=== PATIENT | male | born 1970 | race Caucasian/White ===

== ENCOUNTER 2019-06-08 11:11 | Emergency (ER) | payer BC ==
[2019-06-08] MEDS ORDERED: BABY ASPIRIN 81 MG CHEW PO ONE (11:32)
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
[2019-06-08] MEDS ORDERED: BABY ASPIRIN 81 MG CHEW ONE (11:47)
[2019-06-08 11:52] LABS: Absolute Neutrophil Ct (ANC) 4.74 (1.4-6.9); BASOPHIL % 0.6 % (0.0-0.4); Basophil (Absolute #) 0.05 (0-0.4); Eosinophil % 3.6 % (0.00-5.0); Eosinophil (Absolute #) 0.29 (0-0.5); Hematocrit 47.3 % (42-50); Hemoglobin 16.2 gm/dl (12.5-18.0); Lymphocyte (Absolute #) 2.17 (1.0-4.6); Lymphocytes % 27.2 % (24.0-44.0); Mean Cell Volume 86.6 fl (78-100); Mean Corpuscular Hemoglobin 29.7 pg (26-32); Mean Corpuscular Hgb Concent. 34.2 g/dl (32-36); Mean Platelet Volume 10.2 fl (6-9.5); Monocyte (Absolute #) 0.74 (0.0-1.3); Monocytes % 9.3 % (0.0-12.0); Neutrophil % 59.3 % (36.0-66.0); Platelet Count 237 K/mm3 (150-450); Red Blood Count 5.46 M/mm3 (4.1-5.6); Red Cell Distribution Width 12.7 % (11.5-14.0)
[2019-06-08 12:11] LABS: ALBUMIN 4.5 g/dL (3.5-5.0); ALKALINE PHOSPHATASE 102 U/L (38-126); ANION GAP 13.6 MEQ/L (5-15); BLOOD UREA NITROGEN 16 mg/dL (9-20); CHLORIDE 104 mmol/L (98-107); Calcium 9.5 mg/dL (8.4-10.2); Carbon Dioxide 28 mmol/L (22-30); Creatinine 1 0.84 mg/dL (0.66-1.25); Glucose 100 mg/dL (74-106); NT PRO BNP 22.8 pg/mL (0-450); SGOT/AST 37 U/L (17-59); SGPT/ALT 40 U/L (0-50); SODIUM 142 mmol/L (137-145); Total Protein 8.8 g/dL (6.3-8.2)
--- NOTE | 2019-06-08 12:23 | XRAY ---
Indication: Left arm pain. Comparison: None PA/lateral chest demonstrates normal heart and lungs. Bony thorax intact.
[2019-06-08 14:03] VITALS: BP 128/86; PULSE 74; O2SAT 99
== END 2019-06-08 14:04 | disposition short-term general hospital (02) ==
LOC: ED 11:11
DX: R07.2 Precordial pain (principal); I10 Essential (primary) hypertension; Z79.899 Other long term (current) drug therapy
CPT/HCPCS: 36000; 36415; 71046; 80053; 83880; 84484; 85025; 93005; 93041; 99285; A9270-GY

== ENCOUNTER 2020-10-24 20:20 | Emergency (ER) | payer BC ==
[2020-10-24] MEDS ORDERED: TORAdol 30 mg Injection IM ONE (21:02)
[2020-10-24] MEDS ORDERED: TORAdol 30 mg Injection ONE (21:07)
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
[2020-10-24 22:00] VITALS: BP 108/62; PULSE 88
[2020-10-24 22:06] VITALS: O2SAT 96
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
== END 2020-10-24 22:06 | disposition home or self-care (01) ==
LOC: ED 20:20
DX: S52.122A Displaced fracture of head of left radius, initial encounter for closed fracture (principal); V99.XXXA Unspecified transport accident, initial encounter; Y93.55 Activity, bike riding; Y92.9 Unspecified place or not applicable; M25.522 Pain in left elbow
CPT/HCPCS: 73080; 96372; 99284; J1885